=== PATIENT | female | born 1965 | race Hispanic/Latino ===

== ENCOUNTER 2017-08-02 15:41 | Outpatient (CLI) | payer BC | END 2017-08-02 15:42 | disposition home or self-care (01) | LOC: BICMAMMO 15:41 | PROVIDERS: ATTEND Nurse Practitioner Family | DX: Z12.31 Encounter for screening mammogram for malignant neoplasm of breast (principal) | CPT/HCPCS: 77063; 77067 ==

== ENCOUNTER 2020-01-07 15:25 | Outpatient (CLI) | payer BC ==
--- NOTE | 2020-01-07 16:27 | MMO ---
Bilateral MAMMO Bilat Screen [facility]. CLINICAL HISTORY: Patient is 54 years old and is seen for screening. The patient has no family history of breast cancer. The patient has no personal history of cancer. VIEWS: The views performed were: bilateral craniocaudal with tomosynthesis and bilateral mediolateral oblique with tomosynthesis. FILMS COMPARED: The present examination has been compared to prior imaging studies performed at [facility] on 03/03/2015, 04/12/2016, 11/29/2016 and 08/02/2017. This study has been interpreted with the assistance of computer-aided detection. MAMMOGRAM FINDINGS: There are scattered fibroglandular densities. There are no suspicious masses, suspicious calcifications, or new areas of architectural distortion. IMPRESSION: THERE IS NO MAMMOGRAPHIC EVIDENCE OF MALIGNANCY. A ROUTINE FOLLOW-UP MAMMOGRAM IN 1 YEAR IS RECOMMENDED. THE RESULTS OF THIS EXAM WERE SENT TO THE PATIENT. ACR BI-RADS Category 1 - Negative MAMMOGRAPHY NOTE: 1. A negative mammogram report should not delay a biopsy if a dominant of clinically suspicious mass is present. 2. Approximately 10% to 15% of breast cancers are not detected by mammography. 3. Adenosis and dense breasts may obscure an underlying neoplasm. Reported by: SUNNY GREEN MD Electonically Signed: [id number]
== END 2020-01-07 15:26 | disposition home or self-care (01) ==
LOC: BICMAMMO 15:25
PROVIDERS: ATTEND Nurse Practitioner Family
DX: Z12.31 Encounter for screening mammogram for malignant neoplasm of breast (principal)
CPT/HCPCS: 77063; 77067

== ENCOUNTER 2020-01-14 14:57 | Outpatient (CLI) | payer BC ==
--- NOTE | 2020-01-14 17:21 | MRI ---
EXAM: RIGHT SHOULDER MRI WITHOUT IV CONTRAST: 01/14/20 HISTORY: Right shoulder pain. FINDINGS: AC joint arthrosis with fluid within the subacromial subdeltoid bursa. Full thickness irregular minim ally retracted tear of the supraspinatus tendon with associated undersurface and delaminating tear of the infraspinatus tendon. Medial subluxation of the biceps tendon from the upper bicipital groove as sociated with severe tendinopathy and interstitial tearing in the intra-articular portion of the otilia ps tendon. Interstitial and delaminating tear of the subscapularis tendon. Supraspinatus muscle shows moderate muscle volume loss. Somewhat blunted poorly defined posterior superior labrum. IMPRESSION: Full thickness minimally retracted supraspinatus tendon tear with undersurface and delaminating tear of the infraspinatus tendon. Subluxation of the biceps tendon from the upper bicipital groove associa dipak with some interstitial tearing and tendinopathy in the intra-articular portion with associated un dersurface and delaminating subscapularis tendon tear. AC joint arthrosis with some fluid in the suba cromial subdeltoid bursa. Mild to moderate muscle volume loss of the supraspinatus muscle. POS: RRE
== END 2020-01-14 14:58 | disposition home or self-care (01) ==
LOC: BICMRI 14:57
PROVIDERS: ATTEND Orthopaedic Surgery
DX: M25.511 Pain in right shoulder (principal); M75.121 Complete rotator cuff tear or rupture of right shoulder, not specified as traumatic; S43.001A Unspecified subluxation of right shoulder joint, initial encounter; M19.011 Primary osteoarthritis, right shoulder

== ENCOUNTER 2020-02-22 08:16 | Outpatient (CLI) | payer BC, OTHER ==
[2020-02-22 14:00] LABS: #Basophils 0.1 thou/uL (0.0-0.2); #Eosinphils 0.1 thou/uL (0.0-0.7); #Lymphocytes 3.4 thou/uL (1.20-3.40); #Monocytes 0.3 thou/uL (0.11-0.59); #Neutrophils 4.5 thou/uL (1.40-6.50); %Basophils 1.4 % (0.0-1.0); %Eosinophils 0.9 % (0.0-10.0); %Lymphocytes 40.8 % (21.0-51.0); %Monocytes 3.8 % (0.0-10.0); %Neutrophils 53.2 % (42.0-75.0); Hemoglobin 12.1 g/dL (12.0-16.0); Mean Corpuscular HGB CONC 34.8 g/dL (32.0-36.0); Mean Corpuscular Hemoglobin 31.4 pg (27.0-31.0); Mean Corpuscular Volume 90.4 fL (78.0-98.0); Platelet Count 215 thou/uL (130-400); RBC Distribution Width 12.2 % (11.5-14.5); Red Blood Cell (RBC) Count 3.84 mill/uL (4.20-5.40); White Blood Cell (WBC) Count 8.4 thou/uL (4.8-10.8)
[2020-02-22 14:23] LABS: Anion Gap 14 mmol/L (10-20); BUN (Urea Nitrogen) 13 mg/dL (9.8-20.1); Calc. Creatinine Clearance 0 mL/min (70-130); Calcium 9.5 mg/dL (7.8-10.44); Carbon Dioxide 28 mmol/L (22-29); Chloride 101 mmol/L (98-107); Estimated GFR-MDRD 83; Glucose 201 mg/dL (70-105); Potassium 4.3 mmol/L (3.5-5.1); Sodium 139 mmol/L (136-145)
--- NOTE | 2020-02-23 09:05 | EKG ---
Test Reason : Blood Pressure : / mmHG Vent. Rate : 080 BPM Atrial Rate : 080 BPM P-R Int : 152 ms QRS Dur : 080 ms QT Int : 390 ms P-R-T Axes : 064 074 030 degrees QTc Int : 449 ms Normal sinus rhythm Normal ECG Confirmed by DR. Cristofer GRIFFIN ([id number]) on 02/23/2020 9:05:04 AM Referred By: SRUTHI Confirmed By:DR. Cristofer GRIFFIN
[2020-02-23 12:03] LABS: SARS-CoV-2 MS2 Positive; SARS-CoV-2 N Gene Negative; SARS-CoV-2 S Gene Negative; SARS-CoV-2 by NAA Not Detected (NotDetected); SARS-CoV-2 orf1ab Negative
[2020-02-24 15:54] VITALS: BMI 29.2
== END 2020-02-22 08:17 | disposition home or self-care (01) ==
LOC: LABBT 08:16
PROVIDERS: ATTEND Orthopaedic Surgery
DX: Z01.818 Encounter for other preprocedural examination (principal); Z20.828 Contact with and (suspected) exposure to other viral communicable diseases; M75.121 Complete rotator cuff tear or rupture of right shoulder, not specified as traumatic
CPT/HCPCS: 80048; 85025; 87635; 93005; 93010; U0003

== ENCOUNTER 2020-02-25 10:30 | Day surgery (SDC) | payer BC ==
[2020-02-25] MEDS ORDERED: Midazolam HCl 2 mg/2 ml Vial ONE (11:29)
[2020-02-25] MEDS ORDERED: Fentanyl 100 MCG/2 ML VIAL ONE ×2 (11:29→12:08)
[2020-02-25] MEDS ORDERED: Promethazine HCl 25 MG/ML VIAL IM PRN (12:15)
[2020-02-25] MEDS ORDERED: Ondansetron PF 4 MG/2 ML Vial IVP PRN (12:15)
[2020-02-25] MEDS ORDERED: traMADol HCl 50 MG TAB PO PRN ×2 (12:15)
[2020-02-25] MEDS ORDERED: Zolpidem Tartrate 5 MG TAB PO PRN (12:15)
[2020-02-25] MEDS ORDERED: HYDROcodone/Acetaminophen 10/325 mg Tablet PO PRN ×2 (12:15)
[2020-02-25] MEDS ORDERED: Ropivacaine 0.2% 550 ML 550 ML NERVE BLCK SCH (12:15)
[2020-02-25] MEDS ORDERED: Ketorolac Tromethamine 30 MG/ML VIAL IVP PRN (12:15)
[2020-02-25] MEDS ORDERED: Bupivacaine/Epinephrine 0.25% 30 ML VIAL ONE (12:20)
[2020-02-25] MEDS ORDERED: Dexamethasone 20 MG/5 ML VIAL ONE (12:45)
[2020-02-25] MEDS ORDERED: Metoclopramide HCl 10 MG/2 ML VIAL ONE (12:45)
[2020-02-25] MEDS ORDERED: Rocuronium Bromide 10 MG/ML (10ML VIAL) ONE (12:45)
[2020-02-25] MEDS ORDERED: PROPOFOL 200 MG/20 ML VIAL ONE (12:45)
[2020-02-25] MEDS ORDERED: Ropivacaine 0.5% HCl/PF (150 MG/30 ML VIAL) ONE (12:45)
[2020-02-25] MEDS ORDERED: Ondansetron PF 4 MG/2 ML Vial ONE (12:45)
[2020-02-25] MEDS ORDERED: Glycopyrrolate 0.2 MG/ML 5 ML SYRINGE ONE (12:45)
[2020-02-25] MEDS ORDERED: Ropivacaine 0.2% HCl/PF (40 MG/20 ML VIAL) ONE (12:45)
[2020-02-25] MEDS ORDERED: Lidocaine 1% PF 5 ML VIAL ONE (12:45)
[2020-02-25] MEDS ORDERED: Promethazine HCl 25 MG/ML VIAL ONE (14:02)
--- NOTE | 2020-02-26 12:14 | OP ---
DATE OF PROCEDURE: 02/25/2020 PREOPERATIVE DIAGNOSES: 1. Right full-thickness supraspinatus rotator cuff tear, leading edge of infraspinatus. 2. Biceps sling tearing. 3. No biceps tendinopathy. POSTOPERATIVE DIAGNOSES: 1. Right full-thickness rotator cuff tear. 2. Biceps sling tearing. 3. No biceps tendinopathy and no full-thickness subscapularis tear. PROCEDURE PERFORMED: Right rotator cuff repair, arthroscopic. NITROGLYCERIN NITRATOR OPERATOR BATCH: None. ANESTHESIOLOGIST: Megan Ansari MD ANESTHESIA: The patient received a general endotracheal intubation with interscalene block. ESTIMATED BLOOD LOSS: 30 mL. TOURNIQUET TIME: None. ANTIBIOTICS: Ancef 2 g. IMPLANTS: A 5.5 Corkscrew, 4.75 SwiveLock, and a 2.0 FiberWire. COMPLICATIONS: None. HISTORY OF PRESENT ILLNESS: Ms. Tania Haines is a 54-year-old female who presents with right shoulder pain, which she described has been present for several years, but increased within the last several months. The patient had MRI evidence of full-thickness rotator cuff tear with some biceps tendinopathy, leading edge subscapularis tear. The patient fell in October and with increasing pain. She is unable to overhead elevat. I discussed the risks and benefits of a right arthroscopic repair to include pain, scar, bleeding, infection, damage to vital structures, decreased range of motion and strength, need for further surgeries, continued pain despite surgical intervention, and loss of life or limb. The patient understood the risks and benefits of the procedure, and elects to proceed. DESCRIPTION OF PROCEDURE: Time-out was performed designating the patient's right upper extremity as the operative site based on site, consent, and marking. After time-out, the patient's right upper extremity was prepped and draped in a sterile fashion. She was placed in a beach chair position. All bony prominences were well padded. After 15 mL of Marcaine with epinephrine was injected in the subacromial space, posterior working portal was placed, visualized intra-articularly. There was some fraying of the superior labrum, but no full-thickness tears. A little portion of the sling was frayed, but no full-thickness tearing noted. The biceps looked good throughout its course and did not have any tearing or any significant erythema. Therefore, I left it in place. The subscapularis looked good. The supraspinatus was fully torn superior to inferior. This was debrided intra-articularly the sling. The biceps was not dislocated. We moved subacromially and debrided off the bursa and exposed the cuff. There was a full-thickness rotator cuff tear. I used a shaver/jaden to clean off and debride the footprint to create a bleeding surface. I placed my awl in the position of the footprint. The footprint looked like it was between 12 and 14 mm. As I placed my awl, it slid and it was more central, but I did not feel like I had good placement for anymore Corkscrews. Therefore, I used just a single medial row. I tamped it in place, placed my 5.5 Corkscrew and felt like I had good fixation through the anchor. I passed 4 sutures and tied the knots posterior to anterior. I then, looking and bringing the sutures down laterally, saw that there was a little bit of dog-ear anteriorly. Therefore, I took a 2.0 FiberWire and placed it as a luggage-handle stitch, passed it through and I took all 3 limbs and placed them through a 4.75 SwiveLock laterally. I tapped and then pulled them down. It was a little posterior, but I felt like I appropriately opposed the patient's rotator cuff to its footprint. I cut the sutures. I was unable to place anything in between the cuff and the tear. I was happy with the repair. I then washed and closed with 2-0 nylon. The patient will remain in abduction pillow. She will follow up with me in 2 weeks. Elbow, wrist, and hand motion until followup. Job ID: [id number] [facility]
== END 2020-02-25 16:40 | disposition home or self-care (01) ==
LOC: SDC 10:30
PROVIDERS: ATTEND Orthopaedic Surgery
PROC: 0LQ14ZZ Repair Right Shoulder Tendon, Percutaneous Endoscopic Approach (ICD-10-PCS; principal; 2020-02-25)
PROC: 3E0T3BZ Introduction of Anesthetic Agent into Peripheral Nerves and Plexi, Percutaneous Approach (ICD-10-PCS; principal; 2020-02-25)
DX: M75.121 Complete rotator cuff tear or rupture of right shoulder, not specified as traumatic (principal); M75.21 Bicipital tendinitis, right shoulder; G89.18 Other acute postprocedural pain; E11.9 Type 2 diabetes mellitus without complications; E78.5 Hyperlipidemia, unspecified; Z79.82 Long term (current) use of aspirin; Z79.899 Other long term (current) drug therapy
CPT/HCPCS: A4306; C1713; J0690; J1100; J2250; J2405; J2550; J2704; J2765; J2795; J3010

== ENCOUNTER 2020-02-26 17:45 | Emergency (ER) | payer BC ==
[~2020-02-26 17:45] MED LIST: Ropivacaine 0.5% HCl/PF (150 MG/30 ML VIAL) ONE
== END 2020-02-26 19:05 | disposition home or self-care (01) ==
LOC: ERS 17:45
DX: G89.18 Other acute postprocedural pain (principal); M25.511 Pain in right shoulder; E11.9 Type 2 diabetes mellitus without complications; E78.5 Hyperlipidemia, unspecified; E78.00 Pure hypercholesterolemia, unspecified; Z79.84 Long term (current) use of oral hypoglycemic drugs; Z79.899 Other long term (current) drug therapy
CPT/HCPCS: 99283; J2795

== ENCOUNTER 2020-03-01 12:59 | Outpatient (CLI) | payer BC ==
--- NOTE | 2020-03-01 14:00 | ULT ---
EXAM: Bilateral lower extremity venous ultrasound HISTORY: Elevated d-dimer. COMPARISON: None TECHNIQUE: Multiplanar grayscale and color Doppler images were obtained in a bilateral lower extremit y venous ultrasound. Spectral analysis of the Doppler waveforms were performed. FINDINGS: The bilateral common femoral vein, profunda femoral veins, superficial femoral veins, and p opliteal veins are normal in appearance without visible thrombus. These vessels demonstrate normal compression, flow, and augmentation. The bilateral posterior tibial veins, profunda femoral veins and greater saphenous veins are patent w ithout evidence of DVT. IMPRESSION: No evidence of DVT in the left or right lower extremity.
== END 2020-03-01 13:00 | disposition home or self-care (01) ==
LOC: SCSULT 12:59
PROVIDERS: ATTEND Nurse Practitioner Family
DX: R79.89 Other specified abnormal findings of blood chemistry (principal)
CPT/HCPCS: 93970

== ENCOUNTER 2023-06-30 23:41 | Inpatient (IN) | payer SELFPAY ==
[2023-07-01 00:36] LABS: #Basophils 0.1 thou/uL (0.0-0.2); #Eosinphils 0.1 thou/uL (0.0-0.7); #Monocytes 0.6 thou/uL (0.11-0.59); #Neutrophils 6.9 thou/uL (1.40-6.50); %Basophils 0.8 % (0.0-1.0); %Eosinophils 0.9 % (0.0-10.0); %Lymphocytes 35.3 % (21.0-51.0); %Monocytes 4.9 % (0.0-10.0); %Neutrophils 57.8 % (42.0-75.0); Hematocrit 34.9 % (36.0-47.0); Hemoglobin 11.6 g/dL (12.0-16.0); Mean Corpuscular HGB CONC 33.2 g/dL (32.0-36.0); Mean Corpuscular Hemoglobin 30.4 pg (27.0-31.0); Mean Corpuscular Volume 91.4 fl (78.0-98.0); Mean Platelet Volume 10.2 fL (7.4-10.4); Platelet Count 258 10x3/uL (130-400); Red Blood Cell (RBC) Count 3.82 mill/uL (4.20-5.40)
[2023-07-01 00:54] LABS: ALT (SGPT) 18 U/L (8-55); AST (SGOT) 19 U/L (5-34); Albumin 4.5 g/dL (3.5-5.0); Alkaline Phosphatase 67 U/L (40-110); Anion Gap 15 mmol/L (10-20); BUN (Urea Nitrogen) 16 mg/dL (9.8-20.1); Calc. Creatinine Clearance 0 mL/min (70-130); Calcium 9.1 mg/dL (7.8-10.44); Carbon Dioxide 23 mmol/L (22-29); Chloride 101 mmol/L (98-107); Estimated GFR 94; Globulin 3.1 g/dL (2.4-3.5); Glucose 189 mg/dL (70-105); Potassium 3.8 mmol/L (3.5-5.1); Protein, Total 7.6 g/dL (6.0-8.3); Sodium 135 mmol/L (136-145)
[2023-07-01 00:55] LABS: Troponin I 0.068 ng/mL (< 0.028)
[2023-07-01] MEDS ORDERED: Aspirin Chewable 81 MG TAB ONE ×2 (00:56→12:06)
[2023-07-01] MEDS ORDERED: Acetaminophen 325 MG TAB PO PRN (01:50)
[2023-07-01] MEDS ORDERED: Ondansetron PF 4 MG/2 ML Vial IVP PRN (01:50)
[2023-07-01 03:49] LABS: #Basophils 0.1 thou/uL (0.0-0.2); #Eosinphils 0.1 thou/uL (0.0-0.7); #Monocytes 0.6 thou/uL (0.11-0.59); #Neutrophils 6.1 thou/uL (1.40-6.50); %Basophils 0.6 % (0.0-1.0); %Lymphocytes 37.1 % (21.0-51.0); %Monocytes 5.5 % (0.0-10.0); %Neutrophils 55.5 % (42.0-75.0); Hematocrit 34.2 % (36.0-47.0); Hemoglobin 11.4 g/dL (12.0-16.0); Mean Corpuscular HGB CONC 33.3 g/dL (32.0-36.0); Mean Corpuscular Hemoglobin 30.2 pg (27.0-31.0); Mean Corpuscular Volume 90.5 fl (78.0-98.0); Mean Platelet Volume 10.2 fL (7.4-10.4); Platelet Count 248 10x3/uL (130-400); RBC Distribution Width 12.9 % (11.5-14.5); Red Blood Cell (RBC) Count 3.78 mill/uL (4.20-5.40)
[2023-07-01 04:02] LABS: Hemoglobin A1c 7.3 % (4.0-6.0)
[2023-07-01 04:06] LABS: Anion Gap 14 mmol/L (10-20); BUN (Urea Nitrogen) 15 mg/dL (9.8-20.1); Calc. Creatinine Clearance 103 mL/min (70-130); Calcium 9.1 mg/dL (7.8-10.44); Carbon Dioxide 22 mmol/L (22-29); Cardiac Risk 2.6 (Less than 4.5); Chloride 104 mmol/L (98-107); Cholesterol 103 mg/dl (< 200 Desired); Estimated GFR 103; Glucose 103 mg/dL (70-105); HDL Cholesterol 39 mg/dL (>60 Neg Risk); LDL Cholesterol, Calculated 29 mg/dL; Potassium 3.9 mmol/L (3.5-5.1); Sodium 136 mmol/L (136-145); Triglycerides 176 mg/dL (Less than 150)
[2023-07-01 04:12] LABS: Troponin I 0.143 ng/mL (< 0.028)
[2023-07-01 06:52] LABS: Troponin I 0.134 ng/mL (< 0.028)
[2023-07-01 07:53] VITALS: BMI 27.4
[2023-07-01] MEDS ORDERED: ADENOSINE 60 MG/20 ML SDV ONE (10:14)
[2023-07-01] MEDS: Aspirin 81 mg Enteric Coated Tablet PO SCH (12:10)
[2023-07-01] MEDS ORDERED: Communication Order-Pharmacy FS SCH (19:00)
[2023-07-01] MEDS ORDERED: Atorvastatin Calcium 20 MG TAB PO SCH (21:00)
[2023-07-01] MEDS: Atorvastatin Calcium 20 MG TAB PO SCH (21:30)
[2023-07-01] MEDS: glipiZIDE XL 5 mg ER.TAB PO SCH (21:30)
[2023-07-01] MEDS: Nitroglycerin 0.4 MG TAB (25 Tab Bottle) SL PRN (21:30)
[2023-07-02] MEDS: Sodium Chloride 0.9% 1,000 ML IV SCH ×3 (05:20→15:01)
[2023-07-02] MEDS ORDERED: Heparin 10,000 UNITS/ 10 ML VIAL ONE (06:22)
[2023-07-02 06:27] LABS: #Basophils 0.1 thou/uL (0.0-0.2); #Eosinphils 0.1 thou/uL (0.0-0.7); #Monocytes 0.6 thou/uL (0.11-0.59); #Neutrophils 5.1 thou/uL (1.40-6.50); %Basophils 0.7 % (0.0-1.0); %Eosinophils 1.1 % (0.0-10.0); %Lymphocytes 41.7 % (21.0-51.0); %Monocytes 5.6 % (0.0-10.0); %Neutrophils 50.7 % (42.0-75.0); Hemoglobin 12.1 g/dL (12.0-16.0); Mean Corpuscular HGB CONC 32.7 g/dL (32.0-36.0); Mean Corpuscular Hemoglobin 29.7 pg (27.0-31.0); Mean Corpuscular Volume 90.9 fl (78.0-98.0); Mean Platelet Volume 10.8 fL (7.4-10.4); Platelet Count 272 10x3/uL (130-400); RBC Distribution Width 13.1 % (11.5-14.5); Red Blood Cell (RBC) Count 4.07 mill/uL (4.20-5.40); White Blood Cell (WBC) Count 10.1 10x3/uL (4.8-10.8)
[2023-07-02 06:51] LABS: Anion Gap 14 mmol/L (10-20); BUN (Urea Nitrogen) 14 mg/dL (9.8-20.1); Calc. Creatinine Clearance 93 mL/min (70-130); Calcium 9.2 mg/dL (7.8-10.44); Carbon Dioxide 25 mmol/L (22-29); Chloride 101 mmol/L (98-107); Estimated GFR 94; Glucose 175 mg/dL (70-105); Potassium 4.2 mmol/L (3.5-5.1); Sodium 136 mmol/L (136-145)
[2023-07-02] MEDS ORDERED: Midazolam HCl 2 mg/2 ml Vial ONE (06:58)
[2023-07-02] MEDS ORDERED: fentaNYL 50 mcg/mL 1 mL Vial ONE ×2 (06:58→08:39)
[2023-07-02] MEDS ORDERED: Clopidogrel Bisulfate 300 MG TAB ONE (07:53)
[2023-07-02] MEDS ORDERED: Nitroglycerin 50 MG/250 ML BOT 250 ML ONE (07:53)
[2023-07-02] MEDS ORDERED: Mag-Al 1200 mg/1200 mg/30 ML UDCUP PO PRN (08:46)
[2023-07-02] MEDS ORDERED: Ezetimibe 10 MG TAB PO SCH (09:00)
[2023-07-02] MEDS ORDERED: Iopamidol 370 76% 100 ML VIAL ONE (10:07)
[2023-07-02] MEDS: Lisinopril 2.5 MG TAB PO SCH (13:39)
[2023-07-02] MEDS: Mag-Al 1200 mg/1200 mg/30 ML UDCUP PO SCH (13:47)
[2023-07-02] MEDS: Alogliptin 25 MG TAB PO SCH (14:58)
[2023-07-02] MEDS: Aspirin 81 mg Enteric Coated Tablet PO SCH (15:00)
[2023-07-02] MEDS: Clopidogrel Bisulfate 75 MG TAB PO SCH (15:01)
[2023-07-02] MEDS: Morphine 2 MG/ML VIAL SLOW IVP PRN (15:11)
[2023-07-02 20:02] LABS: Bacteria/HPF None Seen HPF (None Seen); Bilirubin Negative (Negative); Blood, Urine Negative (Negative); CAUTI Indications for Culture Dysuria,urgency,freq; Clarity Clear (Clear); Glucose, Urine (Dipstick) 70 mg/dL (Negative); Ketone, Urine Negative (Negative); Leukocyte Negative Leu/uL (Negative); Nitrite Negative (Negative); Protein, Urine (Dipstick) Negative (Neg-Trace); RBC/HPF 0-3 HPF (0-3); Specific Gravity, Urine 1.031 (1.002-1.036); Squamous Epithelial None Seen HPF (0-3); Urobilinogen Normal mg/dL (Less than 2); WBC/HPF 0-3 HPF (0-3); pH, Urine 6.5 (5.0-9.0)
[2023-07-02 20:05] LABS: Urine Culture Reflex No No
[2023-07-02] MEDS: Atorvastatin Calcium 40 MG TAB PO SCH (20:39)
[2023-07-03 06:10] LABS: #Basophils 0.1 thou/uL (0.0-0.2); #Eosinphils 0.1 thou/uL (0.0-0.7); #Monocytes 0.4 thou/uL (0.11-0.59); #Neutrophils 4.8 thou/uL (1.40-6.50); %Basophils 0.8 % (0.0-1.0); %Eosinophils 0.8 % (0.0-10.0); %Lymphocytes 39.8 % (21.0-51.0); %Monocytes 4.6 % (0.0-10.0); %Neutrophils 53.8 % (42.0-75.0); Hematocrit 37.1 % (36.0-47.0); Hemoglobin 12.3 g/dL (12.0-16.0); Mean Corpuscular HGB CONC 33.2 g/dL (32.0-36.0); Mean Corpuscular Hemoglobin 30.5 pg (27.0-31.0); Mean Corpuscular Volume 92.1 fl (78.0-98.0); Mean Platelet Volume 10.1 fL (7.4-10.4); Platelet Count 285 10x3/uL (130-400); RBC Distribution Width 13.1 % (11.5-14.5); Red Blood Cell (RBC) Count 4.03 mill/uL (4.20-5.40); White Blood Cell (WBC) Count 8.9 10x3/uL (4.8-10.8)
[2023-07-03 06:35] LABS: ALT (SGPT) 27 U/L (8-55); AST (SGOT) 23 U/L (5-34); Albumin 4.4 g/dL (3.5-5.0); Alkaline Phosphatase 62 U/L (40-110); Anion Gap 10 mmol/L (10-20); BUN (Urea Nitrogen) 8 mg/dL (9.8-20.1); Bilirubin, Total 1.3 mg/dL (0.2-1.2); Calc. Creatinine Clearance 101 mL/min (70-130); Calcium 9.3 mg/dL (7.8-10.44); Carbon Dioxide 29 mmol/L (22-29); Chloride 103 mmol/L (98-107); Estimated GFR 101; Glucose 161 mg/dL (70-105); Potassium 4.2 mmol/L (3.5-5.1); Protein, Total 7.4 g/dL (6.0-8.3); Sodium 138 mmol/L (136-145)
[2023-07-03 11:31] VITALS: TEMP 98.4
[2023-07-03 14:11] VITALS: BP 158/72
[2023-07-03] MEDS ORDERED: glipiZIDE XL 5 mg ER.TAB PO SCH (17:00)
== END 2023-07-03 17:49 | disposition home or self-care (01) | DRG 322 ==
LOC: ERS 23:41 → ERHOLD 07-01 01:45 → 2SW 07-01 19:44 → OBSVTOIN 07-02 16:13
PROVIDERS: ADMIT Internal Medicine; ATTEND Family Medicine
PROC: 027034Z Dilation of Coronary Artery, One Artery with Drug-eluting Intraluminal Device, Percutaneous Approach (ICD-10-PCS; principal; 2023-07-02)
PROC: 4A023N7 Measurement of Cardiac Sampling and Pressure, Left Heart, Percutaneous Approach (ICD-10-PCS; 2023-07-02)
PROC: B2151ZZ Fluoroscopy of Left Heart using Low Osmolar Contrast (ICD-10-PCS; 2023-07-02)
PROC: B2111ZZ Fluoroscopy of Multiple Coronary Arteries using Low Osmolar Contrast (ICD-10-PCS; 2023-07-02)
DX: I21.4 Non-ST elevation (NSTEMI) myocardial infarction (principal); R07.89 Other chest pain; E11.9 Type 2 diabetes mellitus without complications; E78.5 Hyperlipidemia, unspecified; Z79.84 Long term (current) use of oral hypoglycemic drugs; Z79.899 Other long term (current) drug therapy; Z90.49 Acquired absence of other specified parts of digestive tract; Z98.51 Tubal ligation status; Z98.890 Other specified postprocedural states; I10 Essential (primary) hypertension; I25.10 Atherosclerotic heart disease of native coronary artery without angina pectoris; Z79.82 Long term (current) use of aspirin
CPT/HCPCS: 36415; 36416; 71045; 78452; 80048; 80053; 80061; 81001; 83036; 83735; 84484; 85025; 85347; 92928; 93005; 93010; 93017; 93458; 93798; 94760; 96374; 99152; 99153; A9502; C1725; C1769; C1874; C1887; C9600; G0378; J0153; J1644; J2250; J2272; J3010; J7050; Q9967

== ENCOUNTER 2024-02-05 11:26 | Emergency (ER) | payer SELFPAY ==
[2024-02-05] MEDS ORDERED: Iopamidol-370 76% 500 ML MDV (1 ML CHARGE) ONE (11:36)
[2024-02-05] MEDS ORDERED: Aspirin Chewable 81 MG TAB ONE (12:25)
[2024-02-05] MEDS ORDERED: Morphine 4 MG/ML VIAL ONE (12:25)
[2024-02-05] MEDS ORDERED: Ondansetron PF 4 MG/2 ML Vial ONE (12:25)
[2024-02-05 12:44] LABS: Bacteria/HPF None Seen HPF (None Seen); Bilirubin Negative (Negative); Blood, Urine Negative (Negative); CAUTI Indications for Culture Pelvic or flank pain; Clarity Clear (Clear); Glucose, Urine (Dipstick) 300 mg/dL (Negative); Ketone, Urine Negative (Negative); Leukocyte Negative Leu/uL (Negative); Nitrite Negative (Negative); Protein, Urine (Dipstick) Negative (Neg-Trace); RBC/HPF 0-3 HPF (0-3); Specific Gravity, Urine 1.009 (1.002-1.036); Squamous Epithelial None Seen HPF (0-3); Urobilinogen Normal mg/dL (Less than 2); WBC/HPF 0-3 HPF (0-3)
[2024-02-05 12:44] LABS: #Basophils 0.07 10x3/uL (0.0-0.2); %Basophils 1.1 % (0.0-1.0); %Eosinophils 0.5 % (0.0-10.0); %Lymphocytes 32.8 % (21.0-51.0); %Monocytes 5.9 % (0.0-10.0); %Neutrophils 59.4 % (42.0-75.0); Hematocrit 38.1 % (36.0-47.0); Hemoglobin 12.8 g/dL (12.0-16.0); Mean Corpuscular HGB CONC 33.6 g/dL (32.0-36.0); Mean Corpuscular Hemoglobin 30.3 pg (27.0-31.0); Mean Corpuscular Volume 90.1 fL (78.0-98.0); Mean Platelet Volume 10.1 fL (7.4-10.4); Platelet Count 255 10x3/uL (130-400); RBC Distribution Width 12.8 % (11.5-14.5); Red Blood Cell (RBC) Count 4.23 mill/uL (4.20-5.40)
[2024-02-05 12:46] LABS: Urine Culture Reflex No No
[2024-02-05 13:08] LABS: ALT (SGPT) 28 U/L (8-55); AST (SGOT) 34 U/L (5-34); Albumin 4.5 g/dL (3.5-5.0); Alkaline Phosphatase 81 U/L (40-110); Anion Gap 11 mmol/L (10-20); BUN (Urea Nitrogen) 10 mg/dL (9.8-20.1); Bilirubin, Total 1.1 mg/dL (0.2-1.2); Calc. Creatinine Clearance 0 mL/min (70-130); Carbon Dioxide 28 mmol/L (22-29); Chloride 102 mmol/L (98-107); Estimated GFR 95; Glucose 134 mg/dL (70-105); Lipase 53 U/L (8-78); Magnesium 2.1 mg/dL (1.6-2.6); Potassium 3.8 mmol/L (3.5-5.1); Protein, Total 8.5 g/dL (6.0-8.3); Sodium 137 mmol/L (136-145)
[2024-02-05 13:12] LABS: Troponin I Less than 0.010 ng/mL (< 0.028)
== END 2024-02-05 15:05 | disposition home or self-care (01) ==
LOC: ERS 11:26
DX: K59.00 Constipation, unspecified (principal); I10 Essential (primary) hypertension; E11.9 Type 2 diabetes mellitus without complications; I25.10 Atherosclerotic heart disease of native coronary artery without angina pectoris; E78.00 Pure hypercholesterolemia, unspecified; Z79.84 Long term (current) use of oral hypoglycemic drugs; Z79.82 Long term (current) use of aspirin; Z79.899 Other long term (current) drug therapy
CPT/HCPCS: 36415; 71045; 74177; 80053; 81001; 83690; 83735; 84484; 85025; 93005; 96374; J2272; J2405; Q9967